=== PATIENT | female | born 1985 | race Caucasian/White ===

== ENCOUNTER 2019-06-25 10:19 | Emergency (ER) | payer BC, SELFPAY ==
[2019-06-25 10:23] VITALS: BP 141/81; PULSE 99; RESP 22; O2SAT 98; BMI 32.5
--- NOTE | 2019-06-25 10:24 | ED_ITS ---
Entered by Bear Gonzalez, acting as scribe for Ford Coto DO HPI - General Adult General: Chief complaint: Chest Pain Stated complaint: CP Time Seen by Provider: 06/25/19 10:24 History of Present Illness: HPI narrative: 34 yo female presents with chest pain. Pt states that she feels like she has something stuck in her chest. Pt states that she woke up and her arms were numb. Pt states that she just doesn't feel right. pt states that when she sits up she feels dizzy. Pt states that she has had a non productive cough. Pt states that she has pain radiating to her left arm. Pt states that she has been taking ibuprofen for her arm pain. MD complaint: chest pain Associated symptoms: Reports chest pain; Deny dyspnea, malaise, nausea, rash or vomiting Review of Systems Const: Denies: fever, chills, body aches, change in appetite, fatigue or malaise ENMT: Denies: throat pain, ear pain, nasal discharge or nasal congestion Card: Reports: chest pain; Denies: edema, shortness of breath on exertion or shortness of breath when lying down Resp: Reports: non-productive cough; Denies: shortness of breath or productive cough GI: Denies: abdominal pain, nausea, vomiting, vomiting blood, coffee grounds in vomit, diarrhea, constipation, bloating, blood in stool or black tarry stool : Denies: flank pain, difficulty urinating, painful urination, urinary frequency or urinary urgency Skin/Breast: Denies: rash or itching Neuro: Reports: dizziness and other (arm numbness) [facility] ED PFSH: Surgical History (Updated 06/25/19 @ 10:45 by Bear Gonzalez) History of bladder surgery Social History Smoking and tobacco status: current every day smoker Physical Exam Const: COMMON NORMALS: no apparent distress GENERAL APPEARANCE: cooperative and comfortable ORIENTATION/CONSCIOUSNESS: Yes awake, Yes oriented to person, Yes oriented to place and Yes oriented to time HENMT: COMMON NORMALS: normocephalic, head/scalp atraumatic, hearing grossly normal bilaterally, external ears normal, EAC's normal, TM's normal bilaterally, nasal mucous membranes and turbinates normal, moist oral mucous membranes and oropharynx normal HEAD & SCALP: normocephalic and atraumatic NOSE: nasal mucous membranes and turbinates normal EXTERNAL EAR: Yes external ears normal EXTERNAL AUDITORY CANAL: EAC's normal TYMPANIC MEMBRANE: TM's normal bilaterally Eye: COMMON NORMALS: PERRL, EOMs intact bilaterally, conjunctivae normal and no scleral icterus CONJUNCTIVA: Yes conjunctivae normal PUPIL: Yes PERRL Neck/C-Spine: COMMON NORMALS: full ROM, no lymphadenopathy, supple and no JVD Lymph: LYMPHATIC: no lymphadenopathy noted and no lymphedema noted Resp: COMMON NORMALS: normal respiratory effort, no retractions, no use of accessory muscles and clear to auscultation bilaterally AUSCULTATION: clear to auscultation bilaterally Cardio: COMMON NORMALS: no JVD, regular rate, regular rhythm and no murmurs RATE: regular rate RHYTHM: regular rhythm GI: COMMON NORMALS: soft to palpation and no hepatosplenomegaly AUSCULTATION: Yes normoactive bowel sounds PALPATION: Yes soft, No tender, No guarding and Yes no hepatosplenomegaly Extremity: COMMON NORMALS: normal to inspection, normal capillary refill, no clubbing, cyanosis or edema, no calf tenderness and no pedal edema Neuro: SENSORIUM/ORIENTATION: Yes oriented to person, Yes oriented to place an d Yes oriented to time Skin: COMMON NORMALS: no rashes or lesions noted GENERAL SKIN EXAM: no r ashes or lesions noted Course ED course: Patient has no evidence of significant chest pathology. No pneumonia no pneumothorax troponins negative her symptoms seem to be more related to musculoskeletal or reproducible with motion she has a grade 1 separation at her AC joint. We will go ahead and discharge home with anti- inflammatory return if has any worsening or problems. Follow-up with PCP. Vital Signs: Vital signs: Vital Signs Pulse Rate 75 06/25/19 14:02 Respiratory Rate 14 06/25/19 14:02 Blood Pressure 145/85 06/25/19 14:02 Pulse Oximetry 98 06/25/19 14:02 [facility] - General Adult Lab Data: Labs: Lab Results 06/25/19 06/25/19 06/25/19 Range/Units 10:33 10:33 10:33 WBC 10.8 H (4.0-10.0) 10^3/ uL RBC 5.06 (4.1-5.3) 10^6/u L Hgb 14.3 (11.5-15.3) g/dL Hct 43.8 (37.0-47.0) % MCV 86.6 (81-99) fL MCH 28.3 (28.0-34.0) pg MCHC 32.6 (30.0-36.0) g/dL RDW 13.0 (12.1-15.1) % Plt Count 291 (130-400) 10^3/c mm MPV 10.2 (7.4-10.4) fL Neut % (Auto) 57.1 % Lymph % (Auto) 32.5 % [place] % (Auto) 5.9 % Eos % (Auto) 3.5 % Baso % (Auto) 0.5 % Neut # (Auto) 6.2 (1.8-7.7) 10^3/u L Lymph # (Auto) 3.5 (0.8-4.8) 10^3/u L [place] # (Auto) 0.6 (0.2-0.9) 10^3/u L Eos # (Auto) 0.4 (0.0-0.8) 10^3/u L Baso # (Auto) 0.1 (0.0-0.1) 10^3/u L Nucleated RBC % (a uto) 0 % Nucleated RBCs # 0.0 /100WBC Specimen Type Sample Site ABG pH (7.35-7.45) ABG pCO2 (35-45) mmHg ABG pO2 (80.0-100.0) mmH g ABG HCO3 (22-26) mmol/L ABG O2 Saturation ABG Base Excess (-2.0-2.0) mmol/ L Cheko Test A-a O2 Gradient (5-10) mmHg Hematocrit (37-47) % Hgb O2 Saturation (95-100) % Carboxyhemoglobin (0.4-20.1) %THgb Methemoglobin (0.4-1.5) % Total Hemoglobin (12-16) g/dL Ionized Calcium (1.1-1.4) mmol/L Cycle Repairer ID Sodium 139 (136-145) mmol/L Potassium 4.3 (3.5-5.1) mmol/L Chloride 102 (98-107) mmol/L Carbon Dioxide 22 (22-29) mmol/L Anion Gap 19.3 H (5-19) BUN 13 (6-20) mg/dL Creatinine 0.7 (0.5-0.9) mg/dL GFR Calculation 95.2 (90-130) mL/min Glucose 99 (65-115) mg/dL Calcium 10.0 (8.5-10.5) mg/dL Total Bilirubin 0.4 (0.15-1.2) mg/dL AST 15 (0-32) U/L ALT 24 (0-33) U/L Alkaline Phosphata se 131 H (35-105) IU/L Troponin T Baselin e 6 (0-10) ng/mL Troponin T 120 Min yuhaaviatam (0-10) ng/mL Delta Troponin T (0-10) ABS# Total Protein 7.0 (6.6-8.7) g/dL Albumin 4.5 (3.5-5.2) g/dL Globulin 2.5 (1.3-4.6) g/dL 06/25/19 06/25/19 Range/Units 11:25 12:22 WBC (4.0-10.0) 10^3/ uL RBC (4.1-5.3) 10^6/u L Hgb (11.5-15.3) g/dL Hct (37.0-47.0) % MCV (81-99) fL MCH (28.0-34.0) pg MCHC (30.0-36.0) g/dL RDW (12.1-15.1) % Plt Count (130-400) 10^3/c mm MPV (7.4-10.4) fL Neut % (Auto) % Lymph % (Auto) % [place] % (Auto) % Eos % (Auto) % Baso % (Auto) % Neut # (Auto) (1.8-7.7) 10^3/u L Lymph # (Auto) (0.8-4.8) 10^3/u L [place] # (Auto) (0.2-0.9) 10^3/u L Eos # (Auto) (0.0-0.8) 10^3/u L Baso # (Auto) (0.0-0.1) 10^3/u L Nucleated RBC % (a uto) % Nucleated RBCs # /100WBC Specimen Type Arterial Sample Site Radial, left ABG pH 7.43 (7.35-7.45) ABG pCO2 35.3 (35-45) mmHg ABG pO2 78.8 L (80.0-100.0) mmH g ABG HCO3 23.3 (22-26) mmol/L ABG O2 Saturation 99.0 ABG Base Excess -0.5 (-2.0-2.0) mmol/ L Cheko Test Pos A-a O2 Gradient 25.2 H (5-10) mmHg Hematocrit 44.5 (37-47) % Hgb O2 Saturation 96.9 (95-100) % Carboxyhemoglobin 1.1 (0.4-20.1) %THgb Methemoglobin 1.0 (0.4-1.5) % Total Hemoglobin 14.5 (12-16) g/dL Ionized Calcium 1.2 (1.1-1.4) mmol/L Cycle Repairer ID gd Sodium 139.0 (136-145) mmol/L Potassium 4.0 (3.5-5.1) mmol/L Chloride (98-107) mmol/L Carbon Dioxide (22-29) mmol/L Anion Gap (5-19) BUN (6-20) mg/dL Creatinine (0.5-0.9) mg/dL GFR Calculation (90-130) mL/min Glucose 91.0 (65-115) mg/dL Calcium (8.5-10.5) mg/dL Total Bilirubin (0.15-1.2) mg/dL AST (0-32) U/L ALT (0-33) U/L Alkaline Phosphata se (35-105) IU/L Troponin T Baselin e (0-10) ng/mL Troponin T 120 Min yuha[place]am 6.00 (0-10) ng/mL Delta Troponin T 0 (0-10) ABS# Total Protein (6.6-8.7) g/dL Albumin (3.5-5.2) g/dL Globulin (1.3-4.6) g/dL Discharge Plan Discharge Patient Disposition: Home, Self-Care Clinical Impression: Acromioclavicular joint separation, type 1 Condition: Stable Prescriptions: [place] 5-325 mg tablet 1 tab PO Q6H PRN (Reason: pain) Qty: 10 RF: 0 No Action Multiple Vitamins Tablet 1 tab PO DAILY RF: 0 clonazepam 0.5 mg tablet 0.25 mg PO BID PRN (Reason: Anxiety) RF: 0 ibuprofen 200 mg Tablet 800 mg PO Q4H PRN (Reason: Pain) RF: 0 Ventolin HFA 90 mcg/actuation HFA aerosol inhaler 2 puff INHALATION Q4H PRN (Reason: Shortness Of Breath) RF: 0 elderberry fruit and flower 460-115 mg Capsule 1 cap PO DAILY RF: 0 Probotic Pearls 1 cap PO DAILY RF: 0 Discharge Orders: Discharge Order (Routine); Ordered 06/25/19 Ordered By: Ford Coto Discharge Diet: Usual diet Discharge Activity: Limit activity as instructed Activity Restrictions/Additional Instructions: Sling arm for comfort. Case management will call with appointment to orthopedic s Discharge Date/Time: 06/25/19 14:03 Coding Level of Care Code ED Blasting Entryman for Chg Fwd Exam Comprehensive The documentation recorded by the Carlos shane Kialy, accurately reflects the service I personally performed and the decisions made by Nnamdi polo Curtis L, DO Jun 25, 2019 10:19
--- NOTE | 2019-06-25 10:46 | ECG_ITS ---
Measurements Intervals [place] Rate: 87 P: 23 PA: 131 QRS: 35 QRSD: 74 T: 37 QT: 346 QTc: 416 SINUS RHYTHM No previous ECG available for comparison Electronically Signed On 06-25-2019 11:21:29 JAVA USER INTERFACE DEVELOPER by Brandan Araya M.D. [email or web address]
--- NOTE | 2019-06-25 10:47 | XR_ITS ---
WS: [id number] XR chest 1V portable [id number] REASON FOR EXAM: dyspnea/cough FINDINGS: The lung cheung are well aerated. No pneumonia, pleural effusion, pulmonary edema, or mass effect. The heart and mediastinal normal. The hilum and apices normal. No osseous abnormalities. XR/XR chest 1V portable [id number] IMPRESSION: Negative chest for active pathology.
[2019-06-25] MEDS: ondansetron 2 mg/ML SDV 2 mL 4 MG IVP (10:50)
[2019-06-25] MEDS: morphine 4 mg/mL SDV 1 mL 2 MG IVP (10:51)
[2019-06-25 10:55] VITALS: O2SAT 97
[2019-06-25 10:55] LABS: Basophils # 0.1 10^3/uL (0.0-0.1); Basophils % 0.5 %; Eosinophils # 0.4 10^3/uL (0.0-0.8); Eosinophils % 3.5 %; Hematocrit 43.8 % (37.0-47.0); Hemoglobin 14.3 g/dL (11.5-15.3); Lymphocytes # 3.5 10^3/uL (0.8-4.8); Lymphocytes % 32.5 %; Mean Corpuscular HGB Conc 32.6 g/dL (30.0-36.0); Mean Corpuscular Hemoglobin 28.3 pg (28.0-34.0); Mean Corpuscular Volume 86.6 fL (81-99); Mean Platelet Volume 10.2 fL (7.4-10.4); Monocytes # 0.6 10^3/uL (0.2-0.9); Monocytes % 5.9 %; Neutrophils # 6.2 10^3/uL (1.8-7.7); Neutrophils % 57.1 %; Nucleated Red Blood Cells % 0 %; Platelet Count 291 10^3/cmm (130-400); Red Blood Count 5.06 10^6/uL (4.1-5.3); White Blood Count 10.8 10^3/uL (4.0-10.0)
[2019-06-25 11:05] LABS: Troponin(5th) Baseline 6 ng/mL (0-10)
[2019-06-25 11:11] LABS: Alanine Aminotransferase 24 U/L (0-33); Albumin Level 4.5 g/dL (3.5-5.2); Alkaline Phosphatase 131 IU/L (35-105); Anion Gap 19.3 (5-19); Aspartate Amino Transferase 15 U/L (0-32); Blood Urea Nitrogen 13 mg/dL (6-20); Carbon Dioxide 22 mmol/L (22-29); Chloride 102 mmol/L (98-107); Globulin 2.5 g/dL (1.3-4.6); Glomerular Filtration Rate 95.2 mL/min (90-130); Glucose 99 mg/dL (65-115); Potassium 4.3 mmol/L (3.5-5.1); Sodium 139 mmol/L (136-145); Total Bilirubin 0.4 mg/dL (0.15-1.2)
--- NOTE | 2019-06-25 11:32 | XR_ITS ---
WS: [id number] XR shoulder LT min 2V* [id number] REASON FOR EXAM: pain FINDINGS: Mild widening of the acromioclavicular interval measured 5.83 cm. The glenoid humeral articulations were normal. The scapula and clavicle show no fractures. XR/XR shoulder LT min 2V* [id number] IMPRESSION: Grade 1 acromioclavicular separation.
[2019-06-25 11:42] LABS: ABG PCO2 35.3 mmHg (35-45); ABG PH Result 7.43 (7.35-7.45); Alveolar-Arterial Oxygen Gradi 25.2 mmHg (5-10); Arterial Blood Gas Hematocrit 44.5 % (37-47); Base Excess ABG -0.5 mmol/L (-2.0-2.0); Blood Gas Allen Test Pos; Blood Gas Sample Site Radial, left; Blood Gas Sample Type Arterial; Carboxyhemoglobin 1.1 %THgb (0.4-20.1); HCO3 ABG 23.3 mmol/L (22-26); HGB O2 Sat 96.9 % (95-100); Ionized Calcium Level - ABG 1.2 mmol/L (1.1-1.4); PO2 ABG 78.8 mmHg (80.0-100.0); Total Hemoglobin 14.5 g/dL (12-16)
[2019-06-25] MEDS: LORazepam 2 mg/mL INJ 1 mL 1 MG IVP (11:43)
[2019-06-25 12:23] VITALS: BP 103/63; PULSE 79; RESP 20; O2SAT 98
--- NOTE | 2019-06-25 12:46 | ECG_ITS ---
Measurements Intervals [place] Rate: 76 P: 27 IN: 151 QRS: 24 QRSD: 72 T: 36 QT: 349 QTc: 395 SINUS RHYTHM Compared to ECG 06/25/2019 10:37:17 No significant changes Electronically Signed On 06-25-2019 16:06:20 ESL INSTRUCTIONAL ASSISTANT by Brandan Araya M.D. [id number]
[2019-06-25 12:53] LABS: Troponin 5 2HR Delta 0 ABS# (0-10)
[2019-06-25 14:02] VITALS: BP 145/85; PULSE 75; RESP 14; O2SAT 98
--- NOTE | 2019-06-27 09:39 | DCPLANNER ---
tactical air control party manager had message to schedule a follow up appointment for patient with ortho. tactical air control party manager called the ortho clinic, spoke with Romana, gave clinic patients information. tactical air control party manager was told that patients information would be printed and reviewed. Clinic will call telephonic nurse case manager and patient with appointment information.
--- NOTE | 2019-06-28 11:09 | DCPLANNER ---
Patient has an appointment scheduled for June at 9:[address] Kumari. Patient is aware of appointment.
--- NOTE | 2019-07-18 15:37 | DCPLANNER ---
Patient did not attend appointment scheduled for 06.28.19 with ortho.
== END 2019-06-25 14:03 | disposition home or self-care (01) ==
PROVIDERS: Emergency Provider Family Medicine
DX: S43.102A Unspecified dislocation of left acromioclavicular joint, initial encounter (principal); X58.XXXA Exposure to other specified factors, initial encounter; F17.200 Nicotine dependence, unspecified, uncomplicated
CPT/HCPCS: 36415; 36600; 71045; 73030; 80051; 80053; 82810; 83986; 84484; 85025; 93005; 96374; 96375; 99282; 99284; J2060; J2270; J2405

== ENCOUNTER 2019-09-28 15:07 | Outpatient (CLI) | payer MEDICAID, SELFPAY ==
[2019-09-28 15:59] LABS: Basophils # 0.1 10^3/uL (0.0-0.1); Basophils % 0.7 %; Eosinophils # 0.5 10^3/uL (0.0-0.8); Hemoglobin 14.2 g/dL (11.5-15.3); Lymphocytes # 3.6 10^3/uL (0.8-4.8); Lymphocytes % 37.9 %; Mean Corpuscular HGB Conc 32.3 g/dL (30.0-36.0); Mean Corpuscular Hemoglobin 29.2 pg (28.0-34.0); Mean Corpuscular Volume 90.3 fL (81-99); Mean Platelet Volume 10.4 fL (7.4-10.4); Monocytes # 0.5 10^3/uL (0.2-0.9); Monocytes % 5.5 %; Neutrophils # 4.8 10^3/uL (1.8-7.7); Neutrophils % 50.5 %; Nucleated Red Blood Cells % 0 %; Platelet Count 270 10^3/cmm (130-400); Red Blood Count 4.87 10^6/uL (4.1-5.3); Red Cell Distribution Width 13.2 % (12.1-15.1); White Blood Count 9.4 10^3/uL (4.0-10.0)
[2019-09-28 16:09] LABS: Monoscreen Negative (Negative)
[2019-10-02 15:22] LABS: EBV IGM TEST <36.00 U/mL
== END 2019-09-28 15:08 | disposition home or self-care (01) ==
LOC: LAB 15:09
PROVIDERS: Visit Provider Family Medicine
DX: I88.9 Nonspecific lymphadenitis, unspecified (principal)
CPT/HCPCS: 85025; 86308

== ENCOUNTER 2019-12-03 07:37 | Outpatient (CLI) | payer MEDICAID, SELFPAY ==
--- NOTE | 2019-12-03 08:00 | CT_ITS ---
WS: [id number] CT NECK WITH CONTRAST HISTORY: LOCALIZED SWELLING, MASS AND LUMP NECK TECHNIQUE: Contiguous 5 mm axial images are performed through the neck with intravenous contrast. Sag ittal and coronal reformats are also submitted. All CT scans at [facility] use at least o ne of these dose optimization techniques: automated exposure control; mA and/or kV adjustment per pat ient size (includes targeted exams where dose is matched to clinical indication); or iterative recons truction. CONTRAST: CONTRAST: Omnipaque 300; 95 mL IV. DLP: 2389.29 mGycm COMPARISON: None. Marker is placed over the LEFT lateral neck at the site of the probable abnormality. There is no unde rlying mass. This is at the level of the submandibular gland and is also an adjacent level 2 a benign lymph node. Nasopharynx, oropharynx, hypopharynx and larynx are unremarkable. No soft tissue masses or abnormal e nhancement. Torus tubarius and fossa of Rosenmuller and parapharyngeal fat are normal. Small benign bilateral cervical chain lymph nodes. Normal fatty evangelist and normal enhancement. Lymph no edi are less than 1 cm. Thyroid gland and salivary glands are normally enhancing with no masses. No osseous abnormalities. Visualized portions of the skull base demonstrate no abnormalities. Orbits and globes are within norm al limits. No soft tissue masses. Visualized paranasal sinuses and mastoid air cells are normal. Lung apices are clear. Increased soft tissue in the anterior mediastinum is likely residual thymic ti ssue. CT/CT neck w con* [id number] IMPRESSION: 1. No neck mass appreciated. Palpable marker corresponds to benign lymph level IIa lymph node and the LEFT submandibular gland. 2. Benign bilateral cervical chain lymphadenopathy.
[2019-12-03] MEDS: iohexol 300 mg/mL 100 mL Btl IV (08:34)
== END 2019-12-03 07:38 | disposition home or self-care (01) ==
LOC: RADWPI 07:43
PROVIDERS: Visit Provider Specialist
DX: R22.1 Localized swelling, mass and lump, neck (principal)
CPT/HCPCS: 70491; Q9967

== ENCOUNTER 2021-09-08 06:54 | Emergency (ER) | payer OTHER, BC, MEDICAID, SELFPAY ==
[2021-09-08 07:01] VITALS: BP 133/84; PULSE 88; RESP 18; TEMP 36.4; O2SAT 97; BMI 32.4
--- NOTE | 2021-09-08 07:24 | ECG_ITS ---
[facility] Test Date: 2021-09-08 Pat Name: Jessica Olmstead Department: Room: Gender: Female Stave Grader: : 1985 Requested By: Chelsy Palafox Order Number: [id number] MD: Darek Linares M.D. Measurements Intervals [place] Rate: 68 P: 30 PA: 145 QRS: 30 QRSD: 81 T: 33 QT: 393 QTc: 420 Interpretive Statements SINUS RHYTHM Compared to ECG 06/25/2019 13:17:20 No significant changes Electronically Signed On 09-08-2021 20:55:09 CDT by Darek Linares M.D. [id number]
--- NOTE | 2021-09-08 07:29 | W.ED.DIZZY ---
Documented by User: LALO Islas 09/08/21 09:14 HPI - Dizziness General: Chief Complaint: Dizziness Stated Complaint: Vertigo Time Seen by Provider: 09/08/21 07:01 Source: patient Mode of arrival: ambulatory Limitations: no limitations History of Present Illness: HPI Narrative: Patient is a 36-year-old female presents to ED today with a complaint of vertigo. Patient tells me she woke up this morning and she noticed a little bit of dizziness when she was trying to get out of bed. She states she went and took a bath and states following this the dizziness was worse. She states she then tried to go lay down but reports lying down made her dizziness more prominent. She reports that she is spinning. When dizziness is severe she will complain of tunnel vision and floaters in her eyes. She reports dizziness is improved by sitting still and keeping her eyes open. Patient was able to ambulate back to her room in the ED without assistance. She does not complain of ear pain, discharge, tinnitus, or hearing loss. No recent URI symptoms or other illness. She does not complain of any numbness, tingling, changes of sensation to her face or extremities. Denies headache. MD elicited complaint: dizziness Onset (ago): hour(s) Timing: awoke with symptoms Severity: moderate Context: change in body position History of similar symptoms: No Exacerbating factors: change in body position and position/lying down Relieving factors: remaining still and keeping eyes open Associated symptoms: Reports no associated symptoms; Denies chest pain, chills, ear discharge, headache(s), nausea, nasal congestion, palpitations, syncope or vomiting Associated neuro symptoms: Reports no associated symptoms; Deny confusion or numbness in extremities Stroke scale total: 0 Review of Systems Const: Denies: fever(s), chills, body aches or fatigue Eyes: Reports: change in vision (reports intermittent tunnel vision when dizziness is severe) and floaters; Denies: blurry vision, blind spots, photophobia, eye discomfort, eye discharge or seeing flashes ENMT: Denies: throat pain, enlarged tonsils, odynophagia, swelling of lips/tongue, oral sores, ear or mastoid pain, ear discharge, nasal discharge, nasal congestion, post nasal drip or sinus pain Card: Denies: chest pain, palpitations, irregular heart rhythm, edema, syncope or pre-syncope Resp: Denies: dyspnea, productive cough or non-productive cough GI: Denies: nausea, vomiting or diarrhea Musc: Denies: neck pain, back pain, extremity pain or joint pain Skin/Breast: Denies: rash Neuro: Reports: dizziness; Denies: headache(s), numbness in extremities, weakness in extremities, sensory changes, lack of coordination, difficulty walking, frequent falls or confusion All/Imm: Denies: facial swelling or seasonal rhinorrhea PFSH ED PFSH: Surgical History History of bladder surgery Social History Smoking and tobacco status: current every day smoker Physical Exam Const: COMMON NORMALS: patient oriented x3, no limitations and alert GENERAL APPEARANCE: cooperative ORIENTATION/CONSCIOUSNESS: Yes awake, Yes oriented to person, Yes oriented to place and Yes oriented to time HENMT: COMMON NORMALS: normocephalic, atraumatic, hearing grossly normal bilaterally, external ears normal, EAC's normal, TM's normal bilaterally and Normal external nose present HEAD & SCALP: normal to inspection, normocephalic and atraumatic FACE & SINUS: normal facial exam NOSE: Normal external nose present EXTERNAL EAR: Yes external ears normal EXTERNAL AUDITORY CANAL: EAC's normal TYMPANIC MEMBRANE: TM's normal bilaterally Eye: COMMON NORMALS: Equal, round and reactive pupils present, EOMs intact bilaterally, conjunctivae normal and no scleral icterus GENERAL EYE: appearance normal, both eyes and all related structures and normal light reflex VISUAL ACUITY: Yes acuity normal VISUAL SEN: No peripheral vision loss and No central vision loss ALIGNMENT: Yes alignment normal PERIORBITAL: periorbital findings normal EYELID: eyelids normal CONJUNCTIVA: Yes conjunctivae normal SCLERA: sclerae normal CORNEA: Yes corneas normal PUPIL: Yes Equal, round and reactive pupils present DIRECT OPHTHALMOSCOPY: Yes normal light reflex OTHER: no nystagmus noted; patient not very cooperative with HINTS testing Neck/C-Spine: COMMON NORMALS: full ROM and no lymphadenopathy GENERAL: Yes normal visual inspection Resp: COMMON NORMALS: normal respiratory effort and clear to auscultation bilaterally AUSCULTATION: clear to auscultation bilaterally Cardio: COMMON NORMALS: regular rate and regular rhythm RATE: regular rate RHYTHM: regular rhythm Extremity: COMMON NORMALS: normal to inspection Neuro: ELI COMA SCALE: document GCS findings Eli coma scale eye opening: Spontaneous Eli coma scale verbal response: Orientated Eli coma scale motor response: Obey commands Eli coma scale total score: 15 COMMON NORMALS: patient oriented x3, CN's II-XII intact bilaterally, moves all extremities, no focal motor deficits and no sensory deficits noted SENSORIUM/ORIENTATION: Yes alert, Yes oriented to person, Yes oriented to place and Yes oriented to time SPEECH: speech normal Skin: COMMON NORMALS: no rashes or lesions noted GENERAL SKIN EXAM: no rashes or lesions noted Course Vital Signs: Vital signs: Vital Signs Temperature 97.5 F L 09/08/21 07:01 Pulse Rate 70 09/08/21 08:08 Respiratory Rate 18 09/08/21 08:08 Blood Pressure 120/81 09/08/21 08:08 Pulse Oximetry 97 09/08/21 08:08 [facility] - Dizziness Medical Decision Making Patient is a 36-year-old female here with complaints of vertigo that started this morning. Gait/ambulation is preserved. Central findings such as limb weakness/sensory changes, facial droop, dysphagia, trouble articulating, and diplopia are absent. She has no neck pain to suggest dissection. At this time symptoms most likely are secondary to a peripheral cause. Blood work/EKG here are normal. She does feel better after IV fluids and meds given here. Will treat with rest, meclizine, zofran and have her follow up with PCP in 48-72 hours if symptoms do not seem to be improving. Return to ED precautions given. Lab Data : 09/08/21 07:40 09/08/21 07:40 Laboratory Results WBC 10.6 10^3/uL (4.0-10.0) H 09/08/21 07:40 RBC 4.69 10^6/uL (4.1-5.3) 09/08/21 07:40 Hgb 13.6 g/dL (11.5-15.3) 09/08/21 07:40 Hct 42.3 % (37.0-47.0) 09/08/21 07:40 MCV 90.2 fl (81-99) 09/08/21 07:40 MCH 29.0 pg (28.0-34.0) 09/08/21 07:40 MCHC 32.2 g/dL (30.0-36.0) 09/08/21 07:40 RDW 13.2 % (12.1-15.1) 09/08/21 07:40 Plt Count 257 10^3/cmm (130-400) 09/08/21 07:40 MPV 9.8 fL (7.4-10.4) 09/08/21 07:40 Neut % (Auto) 59.5 % 09/08/21 07:40 Lymph % (Auto) 28.7 % 09/08/21 07:40 [place] % (Auto) 7.7 % 09/08/21 07:40 Eos % (Auto) 2.9 % 09/08/21 07:40 Baso % (Auto) 0.7 % 09/08/21 07:40 Neut # (Auto) 6.34 10^3/uL (1.8-7.7) 09/08/21 07:40 Lymph # (Auto) 3.1 10^3/uL (0.8-4.8) 09/08/21 07:40 [place] # (Auto) 0.8 10^3/uL (0.2-0.9) 09/08/21 07:40 Eos # (Auto) 0.3 10^3/uL (0.0-0.8) 09/08/21 07:40 Baso # (Auto) 0.1 10^3/uL (0.0-0.1) 09/08/21 07:40 Nucleated RBC % (auto) 0 % 09/08/21 07:40 Nucleated RBCs # 0.0 /100WBC 09/08/21 07:40 Sodium 135 mmol/L (136-145) L 09/08/21 07:40 Potassium 3.9 mmol/L (3.5-5.1) 09/08/21 07:40 Chloride 104 mmol/L (98-107) 09/08/21 07:40 Carbon Dioxide 20 mmol/L (22-29) L 09/08/21 07:40 Anion Gap 14.9 (5-19) 09/08/21 07:40 BUN 15 mg/dL (6-20) 09/08/21 07:40 Creatinine 0.7 mg/dL (0.5-0.9) 09/08/21 07:40 GFR Calculation 94.2 mL/min (90-130) 09/08/21 07:40 Glucose 109 mg/dL (65-115) 09/08/21 07:40 Calculated Osmolality 281 mOsm/kg (285-295) L 09/08/21 07:40 Calcium 8.1 mg/dL (8.5-10.5) L 09/08/21 07:40 Total Bilirubin 0.2 mg/dL (0.15-1.2) 09/08/21 07:40 AST 12 U/L (0-32) 09/08/21 07:40 ALT 17 U/L (0-33) 09/08/21 07:40 Alkaline Phosphatase 107 IU/L (35-105) H 09/08/21 07:40 Total Protein 6.1 g/dL (6.6-8.7) L 09/08/21 07:40 Albumin 4.2 g/dL (3.5-5.2) 09/08/21 07:40 Globulin 1.9 g/dL (1.3-4.6) 09/08/21 07:40 TSH 0.98 uIU/mL (0.27-4.20) 09/08/21 07:40 HCG, Qual Negative (Negative) 09/08/21 07:40 Discharge Plan Discharge Patient Disposition: Home Clinical Impression: Vertigo Condition: Stable Prescriptions: New ondansetron 4 mg tablet,disintegrating 4 mg PO Q8H PRN (Reason: nausea and vomiting) Qty: 14 0RF meclizine 25 mg tablet 25 mg PO QID PRN (Reason: dizziness) Qty: 20 0RF Rx Instructions: 1-2 tabs every 6 hours as needed for dizziness/nausea No Action Multiple Vitamins Tablet 1 tab PO DAILY 0RF clonazepam 0.5 mg tablet 0.25 mg PO BID PRN (Reason: Anxiety) 0RF ibuprofen 200 mg Tablet 800 mg PO Q4H PRN (Reason: Pain) 0RF Ventolin HFA 90 mcg/actuation HFA aerosol inhaler 2 puff INHALATION Q4H PRN (Reason: Shortness Of Breath) 0RF elderberry fruit and flower 460-115 mg Capsule 1 cap PO DAILY 0RF Probotic Pearls 1 cap PO DAILY 0RF [place] 5-325 mg tablet 1 tab PO Q6H PRN (Reason: pain) Qty: 10 0RF Discharge Orders: Discharge ED (Routine); Ordered 09/08/21 Ordered By: Chelsy Palafox Patient Instructions: Vertigo (DC), Benign Paroxysmal Positional Vertigo (DC) Coding Level of Care Code ED Candy Wrapping Machine Operator for Chg Fwd Exam Comprehensive Documented by User: Ford Coto DO 09/08/21 13:24 HPI - Dizziness General: Chief Complaint: Dizziness Stated Complaint: Vertigo Time Seen by Provider: 09/08/21 07:01 [facility] ED PFSH: Surgical History History of bladder surgery Social History Smoking and tobacco status: current every day smoker Physical Exam Neuro: ELI COMA SCALE: document GCS findings Eli coma scale total score: 15 Course Vital Signs: Vital signs: Vital Signs Temperature 97.5 F L 09/08/21 07:01 Pulse Rate 70 09/08/21 08:08 Respiratory Rate 18 09/08/21 08:08 Blood Pressure 120/81 09/08/21 08:08 Pulse Oximetry 97 09/08/21 08:08 MDM - Dizziness Medical Decision Making Patient is a 36-year-old female here with complaints of vertigo that started this morning. Gait/ambulation is preserved. Central findings such as limb weakness/sensory changes, facial droop, dysphagia, trouble articulating, and diplopia are absent. She has no neck pain to suggest dissection. At this time symptoms most likely are secondary to a peripheral cause. Blood work/EKG here are normal. She does feel better after IV fluids and meds given here. Will treat with rest, meclizine, zofran and have her follow up with PCP in 48-72 hours if symptoms do not seem to be improving. Return to ED precautions given. Chart reviewed and patient discussed with midlevel. Agree with assessment and plan. Lab Data : 09/08/21 07:40 09/08/21 07:40 Laboratory Results WBC 10.6 10^3/uL (4.0-10.0) H 09/08/21 07:40 RBC 4.69 10^6/uL (4.1-5.3) 09/08/21 07:40 Hgb 13.6 g/dL (11.5-15.3) 09/08/21 07:40 Hct 42.3 % (37.0-47.0) 09/08/21 07:40 MCV 90.2 fl (81-99) 09/08/21 07:40 MCH 29.0 pg (28.0-34.0) 09/08/21 07:40 MCHC 32.2 g/dL (30.0-36.0) 09/08/21 07:40 RDW 13.2 % (12.1-15.1) 09/08/21 07:40 Plt Count 257 10^3/cmm (130-400) 09/08/21 07:40 MPV 9.8 fL (7.4-10.4) 09/08/21 07:40 Neut % (Auto) 59.5 % 09/08/21 07:40 Lymph % (Auto) 28.7 % 09/08/21 07:40 [place] % (Auto) 7.7 % 09/08/21 07:40 Eos % (Auto) 2.9 % 09/08/21 07:40 Baso % (Auto) 0.7 % 09/08/21 07:40 Neut # (Auto) 6.34 10^3/uL (1.8-7.7) 09/08/21 07:40 Lymph # (Auto) 3.1 10^3/uL (0.8-4.8) 09/08/21 07:40 [place] # (Auto) 0.8 10^3/uL (0.2-0.9) 09/08/21 07:40 Eos # (Auto) 0.3 10^3/uL (0.0-0.8) 09/08/21 07:40 Baso # (Auto) 0.1 10^3/uL (0.0-0.1) 09/08/21 07:40 Nucleated RBC % (auto) 0 % 09/08/21 07:40 Nucleated RBCs # 0.0 /100WBC 09/08/21 07:40 Sodium 135 mmol/L (136-145) L 09/08/21 07:40 Potassium 3.9 mmol/L (3.5-5.1) 09/08/21 07:40 Chloride 104 mmol/L (98-107) 09/08/21 07:40 Carbon Dioxide 20 mmol/L (22-29) L 09/08/21 07:40 Anion Gap 14.9 (5-19) 09/08/21 07:40 BUN 15 mg/dL (6-20) 09/08/21 07:40 Creatinine 0.7 mg/dL (0.5-0.9) 09/08/21 07:40 GFR Calculation 94.2 mL/min (90-130) 09/08/21 07:40 Glucose 109 mg/dL (65-115) 09/08/21 07:40 Calculated Osmolality 281 mOsm/kg (285-295) L 09/08/21 07:40 Calcium 8.1 mg/dL (8.5-10.5) L 09/08/21 07:40 Total Bilirubin 0.2 mg/dL (0.15-1.2) 09/08/21 07:40 AST 12 U/L (0-32) 09/08/21 07:40 ALT 17 U/L (0-33) 09/08/21 07:40 Alkaline Phosphatase 107 IU/L (35-105) H 09/08/21 07:40 Total Protein 6.1 g/dL (6.6-8.7) L 09/08/21 07:40 Albumin 4.2 g/dL (3.5-5.2) 09/08/21 07:40 Globulin 1.9 g/dL (1.3-4.6) 09/08/21 07:40 TSH 0.98 uIU/mL (0.27-4.20) 09/08/21 07:40 HCG, Qual Negative (Negative) 09/08/21 07:40 Discharge Plan Discharge Patient Disposition: Home Clinical Impression: Vertigo Condition: Stable Prescriptions: New ondansetron 4 mg tablet,disintegrating 4 mg PO Q8H PRN (Reason: nausea and vomiting) Qty: 14 0RF meclizine 25 mg tablet 25 mg PO QID PRN (Reason: dizziness) Qty: 20 0RF Rx Instructions: 1-2 tabs every 6 hours as needed for dizziness/nausea No Action Multiple Vitamins Tablet 1 tab PO DAILY 0RF clonazepam 0.5 mg tablet 0.25 mg PO BID PRN (Reason: Anxiety) 0RF ibuprofen 200 mg Tablet 800 mg PO Q4H PRN (Reason: Pain) 0RF Ventolin HFA 90 mcg/actuation HFA aerosol inhaler 2 puff INHALATION Q4H PRN (Reason: Shortness Of Breath) 0RF elderberry fruit and flower 460-115 mg Capsule 1 cap PO DAILY 0RF Probotic Pearls 1 cap PO DAILY 0RF [place] 5-325 mg tablet 1 tab PO Q6H PRN (Reason: pain) Qty: 10 0RF Discharge Orders: Discharge ED (Routine); Ordered 09/08/21 Ordered By: Chelsy Palafox Patient Instructions: Vertigo (DC), Benign Paroxysmal Positional Vertigo (DC) Coding Level of Care Code ED Candy Wrapping Machine Operator for Chg Fwd Exam Comprehensive
[2021-09-08 07:48] LABS: Basophils # 0.1 10^3/uL (0.0-0.1); Basophils % 0.7 %; Eosinophils # 0.3 10^3/uL (0.0-0.8); Eosinophils % 2.9 %; Hematocrit 42.3 % (37.0-47.0); Hemoglobin 13.6 g/dL (11.5-15.3); Lymphocytes # 3.1 10^3/uL (0.8-4.8); Lymphocytes % 28.7 %; Mean Corpuscular HGB Conc 32.2 g/dL (30.0-36.0); Mean Corpuscular Volume 90.2 fl (81-99); Mean Platelet Volume 9.8 fL (7.4-10.4); Monocytes # 0.8 10^3/uL (0.2-0.9); Monocytes % 7.7 %; Neutrophils # 6.34 10^3/uL (1.8-7.7); Neutrophils % 59.5 %; Nucleated Red Blood Cells % 0 %; Platelet Count 257 10^3/cmm (130-400); Red Blood Count 4.69 10^6/uL (4.1-5.3); Red Cell Distribution Width 13.2 % (12.1-15.1); White Blood Count 10.6 10^3/uL (4.0-10.0)
[2021-09-08] MEDS: ondansetron 2 mg/ML SDV 2 mL 4 MG IVP (07:48)
[2021-09-08] MEDS: meclizine 25 mg tablet 50 MG PO (07:48)
[2021-09-08] MEDS: sodium chloride 0.9% 1,000 ML 999 ML IV (07:49)
[2021-09-08 08:06] LABS: HCG, Serum Qual Negative (Negative)
[2021-09-08 08:08] VITALS: BP 120/81; PULSE 70; RESP 18; O2SAT 97
[2021-09-08 08:22] LABS: Alanine Aminotransferase 17 U/L (0-33); Albumin Level 4.2 g/dL (3.5-5.2); Alkaline Phosphatase 107 IU/L (35-105); Anion Gap 14.9 (5-19); Aspartate Amino Transferase 12 U/L (0-32); Blood Urea Nitrogen 15 mg/dL (6-20); Calcium 8.1 mg/dL (8.5-10.5); Carbon Dioxide 20 mmol/L (22-29); Chloride 104 mmol/L (98-107); Globulin 1.9 g/dL (1.3-4.6); Glomerular Filtration Rate 94.2 mL/min (90-130); Glucose 109 mg/dL (65-115); Osmolality Calculated 281 mOsm/kg (285-295); Potassium 3.9 mmol/L (3.5-5.1); Sodium 135 mmol/L (136-145); Thyroid Stimulating Hormone 0.98 uIU/mL (0.27-4.20); Total Bilirubin 0.2 mg/dL (0.15-1.2); Total Protein 6.1 g/dL (6.6-8.7)
== END 2021-09-08 08:57 | disposition home or self-care (01) ==
PROVIDERS: Emergency Provider Physician Assistant
DX: R42 Dizziness and giddiness (principal); F17.210 Nicotine dependence, cigarettes, uncomplicated; Z79.891 Long term (current) use of opiate analgesic
CPT/HCPCS: 80053; 84443; 84703; 85025; 93005; 96361; 96374; 99284; J2405; J7030; J8597

== ENCOUNTER 2022-01-20 22:11 | Emergency (ER) | payer OTHER, BC, MEDICAID, SELFPAY ==
[2022-01-20 22:29] VITALS: BP 134/84; PULSE 99; RESP 16; TEMP 36.9; O2SAT 98; BMI 32.4
--- NOTE | 2022-01-20 22:33 | ECG_ITS ---
[facility] Test Date: 2022-01-20 Pat Name: Jessica Olmstead Department: Room: Gender: Female Commercial Credit Specialist: : 1985 Requested By: Manjinder Mujica Order Number: [id number] MD: Darek Linares M.D. Measurements Intervals [place] Rate: 90 P: 56 RI: 132 QRS: 85 QRSD: 72 T: 39 QT: 358 QTc: 439 Interpretive Statements SINUS RHYTHM LOW QRS VOLTAGE IN PRECORDIAL LEADS [QRS DEFLECTION < 1.0 mV IN CHEST LEADS] Compared to ECG 09/08/2021 08:04:04 Low QRS voltage now present Electronically Signed On 01-21-2022 10:41:32 CDT by Darek Linares M.D. [id number]
--- NOTE | 2022-01-21 01:56 | ED_ITS ---
HPI - Chest Pain General: Chief Complaint: Chest Pain Stated Complaint: cp, left arm pain, light headed Time Seen by Provider: 01/21/22 01:56 History of Present Illness: Ms. Olmstead is a 36-year-old lady who presents to the emergency department due to various concerns. She reports onset of symptoms earlier today with a burning chest pain that radiates in the left arm associated with abnormal feeling and chronic headaches. She additionally endorses 3-week history of atraumatic left lower extremity swelling and pain in her calf. Intensity symptoms moderate to severe. Course has worsened. Worse with palpation and range of motion. No history of frequent similar episodes in the past. No other specific changes in health, exacerbating, or alleviating factors identified. Onset (ago): hour(s) Timing of current episode: constant Prior episodes: No Onset: during rest Pain location: left chest Pain radiation: left arm Severity: moderate Quality: burning Relieving factors: nothing Exacerbating factors: nothing Review of Systems General: Reports: 10 or more systems reviewed and unremarkable except in HPI and below PFSH ED PFSH: Surgical History History of bladder surgery Social History Smoking and tobacco status: current every day smoker Physical Exam Const: COMMON NORMALS: patient oriented x3 and alert GENERAL APPEARANCE: cooperative and well developed HENMT: COMMON NORMALS: normocephalic and atraumatic HEAD & SCALP: normocephalic and atraumatic Eye: COMMON NORMALS: conjunctivae normal CONJUNCTIVA: Yes conjunctivae normal SCLERA: sclerae normal Neck/C-Spine: COMMON NORMALS: supple GENERAL: Yes trachea midline Resp: COMMON NORMALS: normal respiratory effort and clear to auscultation bilaterally EFFORT & INSPECTION: Yes able to speak in complete sentences AUSCULTATION: clear to auscultation bilaterally Cardio: COMMON NORMALS: regular rate and regular rhythm RATE: regular rate RHYTHM: regular rhythm GI: COMMON NORMALS: Soft to palpation PALPATION: Yes Soft to palpation and No Tenderness to palpation present (GI) PERCUSSION: normal to percussion Extremity: NARRATIVE EXTREMITY EXAM: Left calf tenderness palpation without overlying skin lesions. Positive Homans' sign GENERAL: Yes normal exam except as noted and No edema Neuro: COMMON NORMALS: patient oriented x3, CN's II-XII intact bilaterally, moves all extremities, no focal motor deficits and no sensory deficits noted SENSORIUM/ORIENTATION: Yes alert and No Orientation impaired Psych: COMMON NORMALS: mental status grossly normal and Normal thought process present THOUGHT PROCESS: Normal thought process present Course ED course: - Patient was seen and evaluated by me at bedside - Patient placed on cardiac monitors, IV access obtained - Initial evaluation notable for exam as above - Labs and xrays personally interpreted by me. EKG shows nonspecific ST segment abnormalities. No STEMI. -Symptom treatment ordered - Labs notable for mild leukocytosis of uncertain etiology, normal hemoglobin. Negative D-dimer. Negative troponin. No acute metabolic abnormalities to explain symptoms. Negative COVID. - Imaging notable for chest x-ray with no lobar consolidation or pneumothorax. No clear etiology of patient's symptoms. Negative DVT study of left lower extremity. - Upon serial reexamination after treatment the patient was improved - Based on patient history, evaluation, and testing as interpreted the most likely cause of the patient's condition is chest pain with paresthesias of un certain etiology. I discussed further possible evaluation and patient is comfortable foregoing neuroimaging as I do not believe that, based on my exam and clinical history, that it is likely to yield answers. - The results of ED evaluation were discussed with the patient including prescriptions and/or symptomatic cares (if applicable) including appropriate and responsible use, followup plan, and return precautions. The patient verbalized understanding and felt safe for discharge. - Patient discharged in satisfactory condition. Note: Click bubbles or prepopulated cheung in note writing are used for assistance with data collection and billing and are inherently more limited than narrative and other text portions of this note. Please use narrative for additional clinical history and defer to narrative/free test for any case of contradictory information. If information appears in only free text or click bubble it should be considered present or absent as reported. Please contact note technical report writer for clarifications of clinical information or contradictory information. MDM is a brief summary, contradictory or erroneous seeming information should be clarified and full note should be reviewed. Vital Signs: Vital signs: Vital Signs Temperature 98.4 F 01/20/22 22:29 Pulse Rate 77 01/21/22 05:18 Respiratory Rate 20 H 01/21/22 05:18 Blood Pressure 134/62 01/21/22 05:18 Pulse Oximetry 96 01/21/22 05:18 Oxygen Delivery Me thod 01/21/22 05:00 MDM - Chest Pain Medical Decision Making 36-year-old lady presenting with various concerns. Chest pain as well as leg pain and swelling as well as arm paresthesias and headaches. Exam is nonfocal f or neurologic abnormality. No clear etiology identified on ED evaluation. Patient is low risk by heart score and given negative D-dimer does not require further advanced imaging or inpatient management at this time. Strict return precautions given. Follow-up plan discussed. Medical Records I reviewed the patient's medical records. Lab Data I reviewed the patient's lab results. : 01/21/22 03:05 01/21/22 03:05 Radiology Impressions Chest X-Ray 01/21/22 02:11 IMPRESSION: No acute findings. Venous Duplex 01/21/22 02:11 IMPRESSION: No evidence of deep vein thrombosis. Laboratory Results WBC 13.6 10^3/uL (4.0-10.0) H 01/21/22 03:05 RBC 4.60 10^6/uL (4.1-5.3) 01/21/22 03:05 Hgb 13.6 g/dL (11.5-15.3) 01/21/22 03:05 Hct 41.1 % (37.0-47.0) 01/21/22 03:05 MCV 89.3 fl (81-99) 01/21/22 03:05 MCH 29.6 pg (28.0-34.0) 01/21/22 03:05 MCHC 33.1 g/dL (30.0-36.0) 01/21/22 03:05 RDW 13.2 % (12.1-15.1) 01/21/22 03:05 Plt Count 271 10^3/cmm (130-400) 01/21/22 03:05 MPV 10.5 fL (7.4-10.4) H 01/21/22 03:05 Neut % (Auto) 57.5 % 01/21/22 03:05 Lymph % (Auto) 32.2 % 01/21/22 03:05 [place] % (Auto) 6.5 % 01/21/22 03:05 Eos % (Auto) 3.0 % 01/21/22 03:05 Baso % (Auto) 0.4 % 01/21/22 03:05 Neut # (Auto) 7.80 10^3/uL (1.8-7.7) H 01/21/22 03:05 Lymph # (Auto) 4.4 10^3/uL (0.8-4.8) 01/21/22 03:05 [place] # (Auto) 0.9 10^3/uL (0.2-0.9) 01/21/22 03:05 Eos # (Auto) 0.4 10^3/uL (0.0-0.8) 01/21/22 03:05 Baso # (Auto) 0.1 10^3/uL (0.0-0.1) 01/21/22 03:05 Nucleated RBC % (auto) 0 % 01/21/22 03:05 Nucleated RBCs # 0.0 /100WBC 01/21/22 03:05 D-Dimer 0.44 ug/mIFEU (0-0.59) 01/21/22 03:05 Sodium 139 mmol/L (136-145) 01/21/22 03:05 Potassium 3.7 mmol/L (3.5-5.1) 01/21/22 03:05 Chloride 103 mmol/L (98-107) 01/21/22 03:05 Carbon Dioxide 23 mmol/L (22-29) 01/21/22 03:05 Anion Gap 16.7 (5-19) 01/21/22 03:05 BUN 11 mg/dL (6-20) 01/21/22 03:05 Creatinine 0.6 mg/dL (0.5-0.9) 01/21/22 03:05 GFR Calculation 112.5 mL/min (90-130) 01/21/22 03:05 Glucose 89 mg/dL (65-115) 01/21/22 03:05 Calculated Osmolality 287 mOsm/kg (285-295) 01/21/22 03:05 Calcium 9.0 mg/dL (8.5-10.5) 01/21/22 03:05 Total Bilirubin 0.3 mg/dL (0.15-1.2) 01/21/22 03:05 AST 12 U/L (0-32) 01/21/22 03:05 ALT 17 U/L (0-33) 01/21/22 03:05 Alkaline Phosphatase 117 U/L (35-105) H 01/21/22 03:05 Troponin T Baseline 6 ng/L (0-10) 01/21/22 03:05 Total Protein 6.7 g/dL (6.6-8.7) 01/21/22 03:05 Albumin 4.2 g/dL (3.5-5.2) 01/21/22 03:05 Globulin 2.5 g/dL (1.3-4.6) 01/21/22 03:05 Lipase 33 U/L (13-60) 01/21/22 03:05 SARS-CoV-2 Ag (Rapid) Negative (Negative) 01/21/22 04:06 Discharge Plan Discharge Patient Disposition: Home Clinical Impression: Atypical chest pain, Paresthesia and pain of left extremity Condition: Stable Prescriptions: No Action Multiple Vitamins Tablet 1 tab PO DAILY clonazepam 0.5 mg tablet 0.25 mg PO BID PRN (Reason: Anxiety) ibuprofen 200 mg Tablet 800 mg PO Q4H PRN (Reason: Pain) Ventolin HFA 90 mcg/actuation HFA aerosol inhaler 2 puff INHALATION Q4H PRN (Reason: Shortness Of Breath) elderberry fruit and flower 460-115 mg Capsule 1 cap PO DAILY Probotic Pearls 1 cap PO DAILY [place] 5-325 mg tablet 1 tab PO Q6H PRN (Reason: pain) Qty: 10 0RF ondansetron 4 mg tablet,disintegrating 4 mg PO Q8H PRN (Reason: nausea and vomiting) Qty: 14 0RF meclizine 25 mg tablet 25 mg PO QID PRN (Reason: dizziness) Qty: 20 0RF Rx Instructions: 1-2 tabs every 6 hours as needed for dizziness/nausea Discharge Orders: Discharge ED (Routine); Ordered 01/21/22 Ordered By: Manjinder Mujica Discharge Diet: Usual diet Discharge Activity: Increase activity as tolerated Patient Instructions: Chest Pain (ED), Acute Headache (ED), Paresthesia (ED) Activity Restrictions/Additional Instructions: Thank you for visiting the emergency department. You were seen evaluated for arm and chest pain as well as headache. The exact cause of your symptoms is unclear though at this time does not appear to need hospitalization or further emergency department testing. I recommend follow-up with your primary care provider. You may use [id number] medications for symptoms however please do not exceed the daily recommended dosage and please keep in mind that many namebrand medications contain the same active ingredients. Return to the emergency department for worsening symptoms, any new neurologic deficits, or anything else that you are concerned about and feel needs emergency department evaluation. Stand Alone Forms: Work/School Release Coding Level of Care Code ED Wan Support Specialist for Starr Fwmarie Exam Comprehensive
--- NOTE | 2022-01-21 02:11 | USR_ITS ---
PROCEDURE INFORMATION: Exam: US Duplex Left Lower Extremity Veins, Limited Exam date and time: 01/21/2022 2:27 AM Age: 36 years old Clinical indication: Leg, lower; Patient HX: Posterior left calf pain x 3 weeks. No trauma. No edema. No erythema. No history of dvt. ; Additional info: Calf pain, swelling, eval dvt TECHNIQUE: Imaging protocol: Real-time Duplex ultrasound of the Left Lower Extremity with 2-D stafford scale, color Doppler flow and spectral waveform analysis with image documentation. Limited exam focused on the left lower extremity veins. COMPARISON: No relevant prior studies available. FINDINGS: Left deep veins: Unremarkable. The common femoral, femoral, proximal profunda femoral and popliteal veins are patent without thrombus. Normal Doppler waveforms. Normal compressibility and/or augmentation response. Left superficial veins: Unremarkable. Saphenofemoral junction is patent without thrombus. Soft tissues: Unremarkable. US/CV venous duplex [facility] [id number] IMPRESSION: No evidence of deep vein thrombosis.
--- NOTE | 2022-01-21 02:11 | XRR_ITS ---
PROCEDURE INFORMATION: Exam: XR Chest Exam date and time: 01/21/2022 2:17 AM Age: 36 years old Clinical indication: Chest pressure and radiating; Patient HX: C/O chest pain with radiation to left arm TECHNIQUE: Imaging protocol: Radiologic exam of the chest. Views: 1 view. COMPARISON: No relevant prior studies available. FINDINGS: Lungs: No consolidation. Pleural spaces: Unremarkable. No pleural effusion. No pneumothorax. Heart/Mediastinum: No cardiomegaly. Bones/joints: No acute fracture. XR/XR chest 1V portable [id number] IMPRESSION: No acute findings.
[2022-01-21 02:39] VITALS: BP 127/82; PULSE 102; RESP 20; O2SAT 97
[2022-01-21] MEDS: ketorolac 30 mg/mL INJ 15 MG IVP (03:07)
[2022-01-21] MEDS: aspirin 81 mg Chew Tablet 324 MG PO (03:07)
[2022-01-21] MEDS: sodium chloride 0.9% 1,000 ML 999 ML IV (03:07)
[2022-01-21] MEDS: diphenhydrAMINE 50 mg/mL SDV 1mL 25 MG IVP (03:07)
[2022-01-21] MEDS: metoclopramide 5 mg/mL SDV 2 mL 10 MG IVP (03:07)
--- NOTE | 2022-01-21 03:08 | ECG_ITS ---
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 Measurements Intervals [place] Rate: 81 P: 57 CO: 163 QRS: 77 QRSD: 80 T: 30 QT: 376 QTc: 439 Interpretive Statements SINUS RHYTHM POSSIBLE ANTERIOR MYOCARDIAL INFARCTION , PROBABLY OLD [30 ms Q WAVE IN V3/V4, OR R < 0.2 mV IN V4] Compared to ECG 01/20/2022 23:57:41 Myocardial infarct finding now present Electronically Signed On 01-21-2022 10:32:10 CDT by Darek Linares M.D. [email or web address] woman[facility] hospitalRe[facility].Tamion/store/OM/[id number]/[id number]
[2022-01-21 03:27] LABS: Basophils # 0.1 10^3/uL (0.0-0.1); Basophils % 0.4 %; Eosinophils # 0.4 10^3/uL (0.0-0.8); Hematocrit 41.1 % (37.0-47.0); Hemoglobin 13.6 g/dL (11.5-15.3); Lymphocytes # 4.4 10^3/uL (0.8-4.8); Lymphocytes % 32.2 %; Mean Corpuscular HGB Conc 33.1 g/dL (30.0-36.0); Mean Corpuscular Hemoglobin 29.6 pg (28.0-34.0); Mean Corpuscular Volume 89.3 fl (81-99); Mean Platelet Volume 10.5 fL (7.4-10.4); Monocytes # 0.9 10^3/uL (0.2-0.9); Monocytes % 6.5 %; Neutrophils % 57.5 %; Nucleated Red Blood Cells % 0 %; Platelet Count 271 10^3/cmm (130-400); Red Cell Distribution Width 13.2 % (12.1-15.1); White Blood Count 13.6 10^3/uL (4.0-10.0)
[2022-01-21 03:39] LABS: D Dimer 0.44 ug/mIFEU (0-0.59)
[2022-01-21 03:48] LABS: Troponin(5th) Baseline 6 ng/L (0-10)
[2022-01-21 03:51] LABS: Alanine Aminotransferase 17 U/L (0-33); Albumin Level 4.2 g/dL (3.5-5.2); Alkaline Phosphatase 117 U/L (35-105); Anion Gap 16.7 (5-19); Aspartate Amino Transferase 12 U/L (0-32); Blood Urea Nitrogen 11 mg/dL (6-20); Carbon Dioxide 23 mmol/L (22-29); Chloride 103 mmol/L (98-107); Globulin 2.5 g/dL (1.3-4.6); Glomerular Filtration Rate 112.5 mL/min (90-130); Glucose 89 mg/dL (65-115); Lipase 33 U/L (13-60); Osmolality Calculated 287 mOsm/kg (285-295); Potassium 3.7 mmol/L (3.5-5.1); Sodium 139 mmol/L (136-145); Total Bilirubin 0.3 mg/dL (0.15-1.2); Total Protein 6.7 g/dL (6.6-8.7)
--- NOTE | 2022-01-21 04:11 | ECG_ITS ---
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 Measurements Intervals [place] Rate: 91 P: 38 MN: 136 QRS: 5 QRSD: 82 T: 28 QT: 338 QTc: 418 Interpretive Statements SINUS RHYTHM WITH SINUS ARRHYTHMIA Compared to ECG 09/08/2021 08:04:04 No significant changes Electronically Signed On 01-21-2022 10:41:47 CDT by Darek Linares M.D. [email or web address] [email or web address] children's hospitalSloka Telecommadison health.Cardi[employer]/store/NU/[id number] f
[2022-01-21 04:15] VITALS: BP 116/74; PULSE 69; RESP 16; O2SAT 95
[2022-01-21 04:35] LABS: SARS Covid-2 Antigen Negative (Negative)
[2022-01-21 05:00] VITALS: BP 134/62; PULSE 77; RESP 20; O2SAT 96
[2022-01-21 05:18] VITALS: BP 134/62; PULSE 77; RESP 20; O2SAT 96
== END 2022-01-21 05:20 | disposition home or self-care (01) ==
PROVIDERS: Emergency Provider Emergency Medicine
DX: R07.89 Other chest pain (principal); R20.2 Paresthesia of skin; M79.602 Pain in left arm; F17.200 Nicotine dependence, unspecified, uncomplicated
CPT/HCPCS: 71045; 80053; 83690; 84484; 85025; 85378; 87426; 93005; 93971; 96365; 96375; 99285; J1200; J1885; J2765; J3475; J7030

== ENCOUNTER 2023-02-16 18:09 | Emergency (ER) | payer OTHER, BC, MEDICAID, SELFPAY ==
[2023-02-16 18:31] VITALS: BP 134/88; PULSE 100; RESP 18; TEMP 36.8; O2SAT 98; BMI 30.9
--- NOTE | 2023-02-16 18:47 | XRR_ITS ---
PROCEDURE INFORMATION: Exam: XR Chest Exam date and time: 02/16/2023 7:34 PM Age: 37 years old Clinical indication: Cough; Additional info: Cough, hemoptysis TECHNIQUE: Imaging protocol: Radiologic exam of the chest. Views: 1 view. COMPARISON: CR XR chest 1V portable [id number] 01/21/2022 2:17 AM FINDINGS: Lungs: Unremarkable. No consolidation. Pleural spaces: Unremarkable. No pleural effusion. No pneumothorax. Heart/Mediastinum: Unremarkable. No cardiomegaly. Bones/joints: Unremarkable. XR/XR chest 1V portable [id number] IMPRESSION: No acute findings.
[2023-02-16 19:15] LABS: Basophils # 0.1 10^3/uL (0.0-0.1); Basophils % 0.5 %; Eosinophils # 0.4 10^3/uL (0.0-0.8); Hematocrit 40.6 % (36-47); Lymphocytes % 33.6 %; Mean Corpuscular HGB Conc 33.5 g/dL (30-55); Mean Corpuscular Hemoglobin 29.4 pg (27-33); Mean Corpuscular Volume 87.7 fl (85-98); Monocytes # 0.8 10^3/uL (0.2-0.9); Monocytes % 5.7 %; Neutrophils # 8.41 10^3/uL (1.8-7.7); Neutrophils % 56.9 %; Nucleated Red Blood Cells % 0 %; Platelet Count 281 10^3/cmm (157-399); Red Blood Count 4.63 10^6/uL (3.85-5.65); Red Cell Distribution Width 13.3 % (12.1-15.1); White Blood Count 14.75 10^3/uL (3.29-11.43)
[2023-02-16 19:18] LABS: INR 0.93 (0.8-1.2)
[2023-02-16 19:19] LABS: Partial Thromboplastin Time 30.5 SECONDS (23.9-36.7)
[2023-02-16 19:21] LABS: D Dimer 0.71 ug/mLFEU (0-0.59)
--- NOTE | 2023-02-16 19:22 | CTR_ITS ---
PROCEDURE INFORMATION: Exam: CTA Chest With Contrast Exam date and time: 02/16/2023 7:57 PM Age: 37 years old Clinical indication: Other: Hemopysis TECHNIQUE: Imaging protocol: Computed tomographic angiography of the chest with contrast. Exam focused on the arteries. 3D rendering (Not supervised by radiologist): MIP and/or 3D reconstructed images were created by the technologist. Radiation optimization: All CT scans at this facility use at least one of these dose optimization techniques: automated exposure control; mA and/or kV adjustment per patient size (includes targeted exams where dose is matched to clinical indication); or iterative reconstruction. Contrast material: OMNI 350; Contrast volume: 100 ml; Contrast route: INTRAVENOUS (IV); REPORTING DATA: Count of CT and Cardiac NM exams in prior 12 months: This patient has received 0 known CTs and 0 known cardiac nuclear medicine studies in the 12 months prior to the current study. COMPARISON: CR (CHEST, ) 02/16/2023 7:34 PM RADIATION DOSE METRICS: Total DLP (mGy-cm): 388 FINDINGS: Pulmonary arteries: Normal. No pulmonary emboli. Aorta: Unremarkable. No aortic aneurysm. No aortic dissection. Lungs: Unremarkable. No consolidation. No masses. Pleural spaces: Unremarkable. No pneumothorax. No pleural effusion. Heart: Unremarkable. No cardiomegaly. No pericardial effusion. Lymph nodes: Unremarkable. No enlarged lymph nodes. Bones/joints: Unremarkable. No acute fracture. Soft tissues: Unremarkable. CT/CT angio chest PE protcl [id number] IMPRESSION: No acute findings.
[2023-02-16 19:24] LABS: Alanine Aminotransferase 22 U/L (0-33); Albumin Level 4.5 g/dL (3.5-5.2); Alkaline Phosphatase 103 U/L (35-105); Anion Gap 16.4 (5-19); Aspartate Amino Transferase 14 U/L (0-32); Blood Urea Nitrogen 16 mg/dL (6-20); Calcium 8.9 mg/dL (8.5-10.5); Carbon Dioxide 21 mmol/L (22-29); Chloride 105 mmol/L (98-107); Globulin 2.7 g/dL (1.3-4.6); Glomerular Filtration Rate 80.3 mL/min (90-130); Glucose 93 mg/dL (65-115); Osmolality Calculated 289 mOsm/kg (285-295); Potassium 3.4 mmol/L (3.5-5.1); Sodium 139 mmol/L (136-145); Total Bilirubin 0.4 mg/dL (0.15-1.2); Total Protein 7.2 g/dL (6.6-8.7)
[2023-02-16 19:25] LABS: HCG, Serum Qual Negative (Negative)
--- NOTE | 2023-02-16 19:27 | ED_ITS ---
HPI - SOB/Dyspnea General: Chief Complaint: Shortness of Breath/Dyspnea Stated Complaint: back pain Time Seen by Provider: 02/16/23 18:47 History of Present Illness: HPI Narrative: 37-year-old female was referred to the emergency department from urgent care for concerns of left chest discomfort x1 month with some hemoptysis. Patient was sent over from urgent care by Dr. Jacques for concerns of possible PE. Patient has a history of recurrent leukocytosis, chronic cigarette smoker. Patient reports no fever or chills. Patient appears nontoxic. Associated symptoms: Reports chest pain and hemoptysis Review of Systems General: Reports: 10 or more systems reviewed and unremarkable except in HPI and below Card: Reports: chest pain Resp: Reports: hemoptysis [facility] ED PFSH: Surgical History History of bladder surgery Social History Smoking and tobacco/nicotine status: current every day tobacco/nicotine user Physical Exam Const: COMMON NORMALS: alert HENMT: COMMON NORMALS: normocephalic HEAD & SCALP: normocephalic Neck/C-Spine: COMMON NORMALS: full ROM Chest: COMMONS NORMALS: normal palpation of entire chest wall Resp: COMMON NORMALS: normal respiratory effort and clear to auscultation bilaterally AUSCULTATION: clear to auscultation bilaterally Cardio: COMMON NORMALS: regular rate and regular rhythm RATE: regular rate RHYTHM: regular rhythm GI: COMMON NORMALS: non-tender Back/Pelvis: COMMON NORMALS: thoracic and lumbar spine normal to inspection Extremity: COMMON NORMALS: full ROM and no pedal edema Neuro: SENSORIUM/ORIENTATION: Yes alert Skin: COMMON NORMALS: turgor normal GENERAL SKIN EXAM: turgor normal Course Vital Signs: Vital signs: Vital Signs Temperature 98.3 F 02/16/23 18:31 Pulse Rate 100 02/16/23 18:31 Respiratory Rate 18 02/16/23 18:31 Blood Pressure 134/88 02/16/23 18:31 Pulse Oximetry 98 02/16/23 18:31 Oxygen Delivery Me thod Room Air 02/16/23 18:31 MDM - SOB/Dyspnea Medical Decision Making 37-year-old female comes into the emergency department for concerns of chest discomfort, and hemoptysis. Patient appears nontoxic. Patient appears no acute distress. Lungs are clear to auscultation. Vital signs are normal. Differential diagnosis includes not limited to pulmonary embolism, ACS, pneumonia, carcinoma, bronchitis. CMP showed a potassium of 3.4, CBC showed a white blood cell count of 14.75, D- dimer was elevated at 0.71, troponin was less than 6. Chest x-ray was unremarkable. CT a of the chest and abdomen showed no pulmonary embolism or other abnormalities. Reviewed exam with patient with recommendations for treatment and follow-up with primary care. No concern for serious illness or injury was noted. Patient was stable and discharged to home. Lab Data 02/16/23 18:59 02/16/23 18:59 Labs/Radiology: Radiology Impressions Chest CTA 02/16/23 19:22 IMPRESSION: No acute findings. Laboratory Results WBC 14.75 10^3/uL (3.29-11.43) H 02/16/23 18:59 RBC 4.63 10^6/uL (3.85-5.65) 02/16/23 18:59 Hgb 13.60 g/dL (11.27-16.99) 02/16/23 18:59 Hct 40.6 % (36-47) 02/16/23 18:59 MCV 87.7 fl (85-98) 02/16/23 18:59 MCH 29.4 pg (27-33) 02/16/23 18:59 MCHC 33.5 g/dL (30-55) 02/16/23 18:59 RDW 13.3 % (12.1-15.1) 02/16/23 18:59 Plt Count 281 10^3/cmm (157-399) 02/16/23 18:59 MPV 10.0 fL (7.4-10.4) 02/16/23 18:59 Neut % (Auto) 56.9 % 02/16/23 18:59 Lymph % (Auto) 33.6 % 02/16/23 18:59 [place] % (Auto) 5.7 % 02/16/23 18:59 Eos % (Auto) 3.0 % 02/16/23 18:59 Baso % (Auto) 0.5 % 02/16/23 18:59 Neut # (Auto) 8.41 10^3/uL (1.8-7.7) H 02/16/23 18:59 Lymph # (Auto) 5.0 10^3/uL (0.8-4.8) H 02/16/23 18:59 [place] # (Auto) 0.8 10^3/uL (0.2-0.9) 02/16/23 18:59 Eos # (Auto) 0.4 10^3/uL (0.0-0.8) 02/16/23 18:59 Baso # (Auto) 0.1 10^3/uL (0.0-0.1) 02/16/23 18:59 Nucleated RBC % (auto) 0 % 02/16/23 18:59 Nucleated RBCs # 0.0 /100WBC 02/16/23 18:59 PT 12.80 SECONDS (12.1-14.9) 02/16/23 18:59 INR 0.93 (0.8-1.2) 02/16/23 18:59 APTT 30.5 SECONDS (23.9-36.7) 02/16/23 18:59 D-Dimer 0.71 ug/mLFEU (0-0.59) H 02/16/23 18:59 Sodium 139 mmol/L (136-145) 02/16/23 18:59 Potassium 3.4 mmol/L (3.5-5.1) L 02/16/23 18:59 Chloride 105 mmol/L (98-107) 02/16/23 18:59 Carbon Dioxide 21 mmol/L (22-29) L 02/16/23 18:59 Anion Gap 16.4 (5-19) 02/16/23 18:59 BUN 16 mg/dL (6-20) 02/16/23 18:59 Creatinine 0.8 mg/dL (0.5-0.9) 02/16/23 18:59 GFR Calculation 80.3 mL/min (90-130) L 02/16/23 18:59 Glucose 93 mg/dL (65-115) 02/16/23 18:59 Calculated Osmolality 289 mOsm/kg (285-295) 02/16/23 18:59 Calcium 8.9 mg/dL (8.5-10.5) 02/16/23 18:59 Total Bilirubin 0.4 mg/dL (0.15-1.2) 02/16/23 18:59 AST 14 U/L (0-32) 02/16/23 18:59 ALT 22 U/L (0-33) 02/16/23 18:59 Alkaline Phosphatase 103 U/L (35-105) 02/16/23 18:59 Troponin T Gen 5 ng/L < 6 ng/L (0-10) 02/16/23 18:59 Total Protein 7.2 g/dL (6.6-8.7) 02/16/23 18:59 Albumin 4.5 g/dL (3.5-5.2) 02/16/23 18:59 Globulin 2.7 g/dL (1.3-4.6) 02/16/23 18:59 HCG, Qual Negative (Negative) 02/16/23 18:59 All radiology interpretation(s) finalized by discharge EKG Data EKG 1: EKG Interpretation Date: 02/16/23 EKG interpretation time: 19:59 Interpretation: EKG shows a sinus rhythm with a regular rate at [address] elevation or ectopy is noted. No prior exam was available for comparison. Computer Generated Interpretation: Sinus rhythm, low QRS voltage in precordial leads, borderline EKG, unconfirmed report. Discharge Plan Discharge Patient Disposition: Home Clinical Impression: Cough with hemoptysis Condition: Stable Prescriptions: No Action Multiple Vitamins Tablet 1 tab PO DAILY ibuprofen 200 mg Tablet 800 mg PO Q4H PRN (Reason: Pain) Discharge Orders: Discharge ED (Routine); Ordered 02/16/23 Ordered By: Selvin Jason Discharge Diet: Usual diet Discharge Activity: Increase activity as tolerated Patient Instructions: Coughing Up Blood (Hemoptysis) (ED) Activity Restrictions/Additional Instructions: Continue routine care. Follow-up with primary care for further instructions. Return to ED for new concerns. Coding Level of Care Code ED Radiologic Technology Instructor for Starr Naranjo
--- NOTE | 2023-02-16 19:32 | ECG_ITS ---
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 Measurements Intervals [place] Rate: 83 P: 18 AL: 132 QRS: 5 QRSD: 82 T: 14 QT: 345 QTc: 406 Interpretive Statements SINUS RHYTHM LOW QRS VOLTAGE IN PRECORDIAL LEADS [QRS DEFLECTION < 1.0 mV IN CHEST LEADS] Compared to ECG 01/21/2022 03:08:20 Low QRS voltage now present Myocardial infarct finding no longer present Electronically Signed On 02-17-2023 21:30:38 CDT by Alejandro Roldan M.D. [email or web address]/store/[id number]
[2023-02-16 19:53] LABS: Troponin T (5th) Once < 6 ng/L (0-10)
[2023-02-16] MEDS: iohexol 350 mg/mL 500 mL Btl (per mL) IV (20:06)
[2023-02-16 21:26] VITALS: BP 107/59
== END 2023-02-16 21:27 | disposition home or self-care (01) ==
PROVIDERS: Emergency Provider Nurse Practitioner Family
DX: R04.2 Hemoptysis (principal); F17.210 Nicotine dependence, cigarettes, uncomplicated
CPT/HCPCS: 36415; 71045; 71275; 80053; 84484; 84703; 85025; 85378; 85610; 85730; 93005; 99285; Q9967

== ENCOUNTER 2023-12-04 03:22 | Emergency (ER) | payer SELFPAY ==
[2023-12-04 03:23] VITALS: BP 118/81; PULSE 98; RESP 16; TEMP 36.7; O2SAT 96; BMI 28.3
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
[2023-12-04 04:55] VITALS: BP 164/67; PULSE 88; RESP 16; O2SAT 98
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
[2023-12-04] MEDS: CLONazepam 0.5 mg Tablet 1 MG PO (05:32)
[2023-12-04 05:33] VITALS: RESP 16
[2023-12-04] MEDS: oxyCODONE-APAP 5-325 mg Tablet 2 TAB PO (05:33)
[2023-12-04 05:49] VITALS: BP 164/67; PULSE 88; RESP 16; TEMP 36.7; O2SAT 98
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
== END 2023-12-04 05:52 | disposition home or self-care (01) ==
PROVIDERS: Emergency Provider Emergency Medicine
DX: S60.222A Contusion of left hand, initial encounter (principal); S44.92XA Injury of unspecified nerve at shoulder and upper arm level, left arm, initial encounter; Y35.813A Legal intervention involving manhandling, suspect injured, initial encounter
CPT/HCPCS: 72125; 73060; 73090; 73120; 99284